=== PATIENT | male | born 1995 | race Caucasian/White ===

== ENCOUNTER 2018-04-29 11:47 | Emergency (ER) | payer SELFPAY ==
--- NOTE | 2018-04-29 12:38 | EDM.PDOC ---
ED HPI GENERAL MEDICAL PROBLEM - General Chief Complaint: General Stated Complaint: MEDICAL VIA [facility] Time Seen by Provider: 04/29/18 12:25 Source of Information: Reports: Patient, EMS History Limitations: Reports: No Limitations - History of Present Illness INITIAL COMMENTS - FREE TEXT/NARRATIVE: 23 yo previously healthy male was working doing [employer] work just an hour or so earlier today when he got tunnel vision and passed out slowly. He was aware of his heart beating fast and upon interrogation of his Apple Watch here in the ER his HR was at one point up to 192/min. By the time EMS arrived his vitals were normal. He feels fine now. This has never happened to him before. He had no chest pain. He did eat chips and a roll for breakfast. He is not diabetic. Onset: Today Onset Date: 04/29/18 Onset Time: 11:40 Duration: Minutes:, Resolved Prior to Arrival Location: Reports: Generalized Quality: Reports: Other (no pain) Severity: Moderate Improves with: Reports: Other (time) Worsens with: Reports: Other (unknown) Context: Reports: Other (See HPI) Associated Symptoms: Reports: Syncope. Denies: Chest Pain, Diaphoresis, Fever/ Chills, Nausea/Vomiting, Shortness of Breath Treatments WARM IN: Reports: Other (see below) (none) - Related Data Allergies Allergy/AdvReac Type Severity Reaction Status Date / Time No Known Allergies Allergy Verified 04/03/15 15:15 Home Meds: Home Meds NK [No Known Home Meds] 04/03/15 [History] Past Medical History Musculoskeletal History: Reports: Fracture Neurological History: Reports: Seizure - Infectious Disease History Infectious Disease History: Reports: Chicken Pox - Past Surgical History Musculoskeletal Surgical History: Reports: ORIF Social & Family History - Tobacco Use Smoking Status *Q: Current Every Day Smoker Years of Tobacco use: 5 Packs/Tins Daily: 0.5 - Caffeine Use Caffeine Use: Reports: Coffee - Recreational Drug Use Recreational Drug Use: No ED ROS GENERAL - Review of Systems Review Of Systems: See Below Constitutional: Reports: No Symptoms HEENT: Reports: No Symptoms Respiratory: Reports: No Symptoms Cardiovascular: Reports: Lightheadedness (tunnel vision before passing out.), Syncope Endocrine: Reports: No Symptoms GI/Abdominal: Reports: No Symptoms : Reports: No Symptoms Musculoskeletal: Reports: No Symptoms Skin: Reports: No Symptoms Neurological: Reports: No Symptoms Psychiatric: Reports: No Symptoms ED EXAM, GENERAL - Physical Exam Exam: See Below Exam Limited By: No Limitations General Appearance: Alert, WD/WN, No Apparent Distress Eye Exam: Bilateral Eye: EOMI, Normal Inspection, PERRL Ears: Normal External Exam, Normal Canal, Hearing Grossly Normal, Normal TMs Ear Exam: Bilateral Ear: Auricle Normal, Canal Normal, TM normal Nose: Normal Inspection, Normal Mucosa, No Blood Throat/Mouth: Normal Inspection, Normal Lips, Normal Oropharynx, Normal Voice, No Airway Compromise Head: Atraumatic, Normocephalic Neck: Normal Inspection, Supple, Non-Tender Respiratory/Chest: No Respiratory Distress, Lungs Clear, Normal Breath Sounds, No Accessory Muscle Use Cardiovascular: Regular Rate, Rhythm, No Edema GI/Abdominal: Normal Bowel Sounds, Soft, Non-Tender, No Distention Back Exam: Normal Inspection. No: CVA Tenderness (R), CVA Tenderness (L) Extremities: Normal Inspection, Normal Range of Motion, Non-Tender, No Pedal Edema Neurological: Alert, Oriented, CN II-XII Intact, Normal Cognition, No Motor/ Sensory Deficits Psychiatric: Normal Affect, Normal Mood Skin Exam: Warm, Dry, Intact, Normal Color, No Rash Lymphatic: No Adenopathy EKG INTERPRETATION EKG Date: 04/29/18 Time: 14:55 Rhythm: NSR Rate (Beats/Min): 70 [place]: Normal P-Wave: Present QRS: Normal ST-T: Normal QT: Normal Comparison: NA - No Prior EKG Course - Vital Signs Last Recorded V/S: Last Vital Signs Temp 36.2 C 04/29/18 11:59 Pulse 79 04/29/18 16:35 Resp 12 04/29/18 16:35 BP 127/66 04/29/18 16:35 Pulse Ox 99 04/29/18 16:35 - Orders/Labs/Meds Orders: Active Orders 24 hr Category Date Time Status Cardiac Monitoring [RC] .As Directed Care 04/29/18 12:37 Active EKG Documentation Completion [RC] ASDIRECTED Care 04/29/18 14:30 Active Orthostatic Vital Signs [RC] ASDIRECTED Care 04/29/18 12:37 Active Oxygen Therapy Adult [Oxygen Therapy, ED] [RC] Care 04/29/18 13:00 Active ASDIRECTED EKG 12 Lead [EK] Routine Ther 04/29/18 14:30 Ordered Labs: Laboratory Tests 04/29/18 04/29/18 04/29/18 Range/Units 12:42 12:42 12:42 WBC 9.3 (4.5-11.0) K/uL RBC 4.75 (4.30-5.90) M/uL Hgb 15.5 H (12.0-15.0) g/dL Hct 43.9 (40.0-54.0) % MCV 92 (80-98) fL MCH 33 H (27-31) pg MCHC 35 (32-36) % Plt Count 281 (150-400) K/uL ABG Carboxyhemoglobin (0.0-1.6) % Sodium 143 (140-148) mmol/L Potassium 4.7 (3.6-5.2) mmol/L Chloride 106 (100-108) mmol/L Carbon Dioxide 25 (21-32) mmol/L Anion Gap 12.4 (5.0-14.0) mmol/L BUN 13 (7-18) mg/dL Creatinine 1.2 (0.8-1.3) mg/dL Est Cr Clr Drug Dosing 88.30 mL/min Estimated GFR (MDRD) > 60 (>60) Glucose 82 (74-106) mg/dL Calcium 9.2 (8.5-10.1) mg/dL Magnesium 1.8 (1.8-2.4) mg/dL Troponin I < 0.017 (0.000-0.056) ng/mL 04/29/18 04/29/18 Range/Units 12:59 17:00 WBC (4.5-11.0) K/uL RBC (4.30-5.90) M/uL Hgb (12.0-15.0) g/dL Hct (40.0-54.0) % MCV (80-98) fL MCH (27-31) pg MCHC (32-36) % Plt Count (150-400) K/uL ABG Carboxyhemoglobin 21.5 H 4.4 H (0.0-1.6) % Sodium (140-148) mmol/L Potassium (3.6-5.2) mmol/L Chloride (100-108) mmol/L Carbon Dioxide (21-32) mmol/L Anion Gap (5.0-14.0) mmol/L BUN (7-18) mg/dL Creatinine (0.8-1.3) mg/dL Est Cr Clr Drug Dosing mL/min Estimated GFR (MDRD) (>60) Glucose (74-106) mg/dL Calcium (8.5-10.1) mg/dL Magnesium (1.8-2.4) mg/dL Troponin I (0.000-0.056) ng/mL Departure - Departure Time of Disposition: 17:45 Disposition: Home, Self-Care 01 Condition: Good Clinical Impression: Carbon monoxide poisoning Qualifiers: Encounter type: initial encounter Injury intent: accidental or unintentional Qualified Code(s): T58.91XA - Toxic effect of carbon monoxide from unspecified source, accidental (unintentional), initial encounter - Discharge Information *PRESCRIPTION DRUG MONITORING PROGRAM REVIEWED*: Not Applicable *COPY OF PRESCRIPTION DRUG MONITORING REPORT IN PATIENT JAYANT: Not Applicable Instructions: Carbon Monoxide Poisoning, [id number] Referrals: PCP,None [Primary Care Provider] - Forms: ED Department Discharge Additional Instructions: Recheck with your provider early next week. Rest today. Acetaminophen as needed. Return here as needed. - My Orders Last 24 Hours: My Active Orders 04/29/18 12:37 Cardiac Monitoring [RC] .As Directed Orthostatic Vital Signs [RC] ASDIRECTED 04/29/18 13:00 Oxygen Therapy Adult [Oxygen Therapy, ED] [RC] ASDIRECTED 04/29/18 14:30 EKG Documentation Completion [RC] ASDIRECTED EKG 12 Lead [EK] Routine - Assessment/Plan Last 24 Hours: My Active Orders 04/29/18 12:37 Cardiac Monitoring [RC] .As Directed Orthostatic Vital Signs [RC] ASDIRECTED 04/29/18 13:00 Oxygen Therapy Adult [Oxygen Therapy, ED] [RC] ASDIRECTED 04/29/18 14:30 EKG Documentation Completion [RC] ASDIRECTED EKG 12 Lead [EK] Routine
[2018-04-29 17:14] VITALS: BP 127/66
== END 2018-04-29 18:21 | disposition home or self-care (01) ==
LOC: JP.ED 11:47
DX: T58.91XA Toxic effect of carbon monoxide from unspecified source, accidental (unintentional), initial encounter (principal); F17.210 Nicotine dependence, cigarettes, uncomplicated
CPT/HCPCS: 36415; 80048; 82375; 83735; 84484; 85027; 93005; 99284-25